=== PATIENT | female | born 1955 | race Caucasian/White ===

== ENCOUNTER → 2018-02-11 | Outpatient (CLI) | payer OTHER | LOC: M.RAD 10:19 | DX: M47.896 Other spondylosis, lumbar region (principal); M47.894 Other spondylosis, thoracic region ==

== ENCOUNTER → 2018-02-12 | Outpatient (CLI) | payer OTHER | LOC: M.MRI 07:30 | DX: M51.26 Other intervertebral disc displacement, lumbar region (principal); M54.42 Lumbago with sciatica, left side ==

== ENCOUNTER → 2019-08-11 | Outpatient (CLI) | payer OTHER | LOC: M.RAD 10:24 | DX: J02.9 Acute pharyngitis, unspecified (principal) ==